=== PATIENT | male | born 1965 | race Caucasian/White ===

== ENCOUNTER 2019-02-25 07:32 | Day surgery (SDC) | payer BC ==
[~2019-02-25] VITALS: Ht 190.5 cm; Wt 138.6 kg
[2019-02-25] VITALS (7 sets, daily range): BP systolic 91–106; BP diastolic 58–71; PULSE 73–86; TEMP 97.6–98.7
[2019-02-25] MEDS ORDERED: ZANTAC 150MG T150 MG PO (09:06)
[2019-02-25] MEDS ORDERED: ASPIRIN 81M81 MG/TA2 PO (09:06)
[2019-02-25] MEDS ORDERED: LANTUS100 U/ML SQ (09:08)
[2019-02-25] MEDS ORDERED: HUMALOG100 U/ML (09:08)
[2019-02-25] MEDS ORDERED: LEVAQUIN 750MG750 M1 PO (09:09)
[2019-02-25] MEDS ORDERED: GLUCOPHAGE1000 MG PO (09:09)
[2019-02-25] MEDS ORDERED: ZESTORETIC 12.51 TA1 PO (09:10)
[2019-02-25] MEDS ORDERED: LIPITOR 80MG80 MG PO (09:10)
[2019-02-25] MEDS ORDERED: PLAVIX 75MG TAB75 MG PO (09:11)
[2019-02-25] MEDS ORDERED: ACTOS 45MG45 MG/TAB PO (09:11)
[2019-02-25] MEDS ORDERED: GLYXAMBI1 TAB PO (09:12)
[2019-02-25] MEDS ORDERED: LOPRESSOR 550 MG/TAB PO (09:13)
[2019-02-25] MEDS ORDERED: CELEXA 20MG20 MG/TAB PO (09:14)
--- NOTE | 2019-02-25 11:10 | NUR ---
Patient returns to room 1 per cart from PACU accompanied by Marisa DE SOUZA and is alert and awake. Foot of cart is elevated and dianelys wrap dressing to the right foot dry. IV fluids infusing #18G left hand. Temp 98.0 and room air sats 94%. Family at bedside. Taking sips of water. Denies pain or nausea.
[2019-02-25] MEDS ORDERED: NORCO 325 MG-51 TAB PO (11:24)
--- NOTE | 2019-02-25 11:25 | NUR ---
Patient is drinking tea and continues to deny pain. Foot of cart is elevated.
--- NOTE | 2019-02-25 11:40 | NUR ---
Room air sats 92%. Foot of cart elevated. Bulky dianelys wrap dressing dry.
--- NOTE | 2019-02-25 11:55 | NUR ---
Continues to rest and denies pain or nausea.
--- NOTE | 2019-02-25 12:10 | NUR ---
Medicated with [place] 7.5mg two tabs for right foot pain at 4/10. Eating toast and drinking diet Pepsi. Denies nausea.
--- NOTE | 2019-02-25 12:20 | NUR ---
Assisted up to the bathroom with use of walker and instructed on partial weight bearing and put weight on the heel. Post op shoe is in place. Bulky dianelys wrap dressing dry.
--- NOTE | 2019-02-25 12:40 | NUR ---
Given dismissal instructions and provided script for [place] and follow up reminder card with office number for questions and concerns.
--- NOTE | 2019-02-25 12:47 | NUR ---
Patient dismissed to home per private vehicle driven by spouse and taken to the front door per wheelchair and assisted into vehicle with written dismissal instructions in hand.
== END 2019-02-25 12:47 | disposition home or self-care (01) ==
LOC: SDCO 07:32
DX: M86.8X7 Other osteomyelitis, ankle and foot (principal); E11.9 Type 2 diabetes mellitus without complications; E78.00 Pure hypercholesterolemia, unspecified; F17.210 Nicotine dependence, cigarettes, uncomplicated; K21.9 Gastro-esophageal reflux disease without esophagitis; Z80.9 Family history of malignant neoplasm, unspecified; Z82.49 Family history of ischemic heart disease and other diseases of the circulatory system; Z83.3 Family history of diabetes mellitus; Z79.82 Long term (current) use of aspirin; Z79.02 Long term (current) use of antithrombotics/antiplatelets; Z79.4 Long term (current) use of insulin
CPT/HCPCS: J0690; J1100; J1815; J2370; J2405; J2704; J3010; J7030